=== PATIENT | female | born 1970 | race Caucasian/White ===

== ENCOUNTER 2016-11-19 08:01 | Day surgery (SDC) | payer BC ==
[~2016-11-19] VITALS: Ht 162.6 cm; Wt 61.7 kg
[~2016-11-19 08:01] MED LIST: CEFAZOLIN SOD 1 GM in D5W 50 ML IV ONE
[2016-11-19 08:42] VITALS: O2SAT 97
[2016-11-19] MEDS ORDERED: SEVOFLURANE 15 MIN GAS INH ONE (08:46)
[2016-11-19] MEDS ORDERED: ROCURONIUM BROMIDE 10 MG/ML (ZEMURON) IV ONE (08:46)
[2016-11-19] MEDS ORDERED: MIDAZOLAM HCL 5 MG/5 ML VIAL IVP ONE (08:46)
[2016-11-19] MEDS ORDERED: LR 1,000 ML IV.SOLN IV ONE (08:46)
[2016-11-19] MEDS ORDERED: GLYCOPYRROLATE 0.2 MG/ML VIAL IJ ONE (08:46)
[2016-11-19] MEDS ORDERED: DEXAMETHASONE SOD PHOSPHATE 4 MG/ML VIAL IVP ONE (08:46)
[2016-11-19] MEDS ORDERED: PROPOFOL 200MG/ 20ML VIAL (DIPRIVAN) IV ONE (08:46)
[2016-11-19] MEDS ORDERED: NS IRRIG SOLN 1000 ML IR ONE (08:46)
[2016-11-19] MEDS ORDERED: NS 1000 ML BAG IV ONE (08:46)
[2016-11-19] MEDS ORDERED: fentaNYL CITRATE 250 MCG/5 ML AMP IV ONE (08:46)
[2016-11-19] MEDS ORDERED: LR 1,000 ML IV ONE (10:44)
[2016-11-19] MEDS ORDERED: fentaNYL CITRATE/PF 100 MCG/2 ML AMP IVP PRN (10:45)
[2016-11-19] MEDS ORDERED: NALOXONE HCL 0.4 MG/ML AMP (NARCAN) IVP PRN (10:45)
[2016-11-19] MEDS ORDERED: ePHEDrine sulfate 50 MG/ML VIAL IVP PRN (10:45)
[2016-11-19] MEDS ORDERED: DIPHENHYDRAMINE INJ 50 MG/ML VIAL IVP PRN (10:45)
[2016-11-19] MEDS ORDERED: ONDANSETRON HCL 4 MG/2 ML VIAL IVP PRN ×3 (10:45→12:30)
[2016-11-19] MEDS ORDERED: NALBUPHINE HCL 10 MG/ML AMP IVP PRN (10:45)
[2016-11-19] MEDS ORDERED: MEPERIDINE HCL/PF 50 MG/ML AMP IVP PRN (12:30)
[2016-11-19] MEDS ORDERED: OXYCODONE/ACETAMINOPHEN 5-325 TABLET PO PRN ×2 (12:30)
[2016-11-19] MEDS ORDERED: HYDROcodone/ACETAMIN 5-325 MG TAB (NORCO/ VICODIN) PO PRN (12:30)
[2016-11-19] MEDS ORDERED: fentaNYL CITRATE/PF 100 MCG/2 ML AMP ONE (12:57)
[2016-11-19] MEDS ORDERED: ONDANSETRON HCL 4 MG/2 ML VIAL ONE (13:04)
[2016-11-19 13:39] VITALS: BP 119/64; PULSE 61; RESP 16
[2016-11-19] MEDS ORDERED: KETOROLAC TROMETHAMINE 30 MG VIAL IM ONE (14:00)
[2016-11-19] MEDS ORDERED: OXYCODONE/ACETAMINOPHEN 5-325 TABLET ONE (14:41)
[2016-11-19] MEDS ORDERED: KETOROLAC TROMETHAMINE 30 MG VIAL ONE (15:06)
== END 2016-11-19 16:50 | disposition home or self-care (01) ==
LOC: SDS 08:01 → SMU 08:02 → SDS 16:50
PROVIDERS: ATTEND Specialist
DX: N81.4 Uterovaginal prolapse, unspecified (principal); N39.3 Stress incontinence (female) (male); Z85.3 Personal history of malignant neoplasm of breast; N83.202 Unspecified ovarian cyst, left side; N94.10 Unspecified dyspareunia; N83.201 Unspecified ovarian cyst, right side; Z90.13 Acquired absence of bilateral breasts and nipples; I10 Essential (primary) hypertension; K21.9 Gastro-esophageal reflux disease without esophagitis; J45.909 Unspecified asthma, uncomplicated
CPT/HCPCS: 52000; 58552; 88307; C1727; J0690; J1100; J1885; J2250; J2405; J2704; J3010 ×2; J3490; J7030; J7060; J7120; E0190

== ENCOUNTER 2022-03-16 12:16 | Emergency (ER) | payer BC ==
[~2022-03-16] VITALS: Ht 162.6 cm; Wt 62.6 kg
[2022-03-16 13:53] VITALS: BP_SYST 119
--- NOTE | 2022-03-16 14:03 | NUR ---
PT PLACED IN BED 8. REPORT TO YASSINE KIM.
--- NOTE | 2022-03-16 14:20 | NUR ---
In ER bed 8. C/O Abdominal pain. Urine sent Awaiting
[2022-03-16 14:29] LABS: BILIRUBIN,URINE NEGATIVE (NEGATIVE); BLOOD, URINE NEGATIVE (NEGATIVE); CLARITY/URINE CLEAR (CLEAR); KETONES,URINE NEGATIVE (NEGATIVE); LEUKOCYTE ESTERASE ,URINE NEGATIVE (NEGATIVE); PH,URINE 7.5 (5.0-8.0); PROTEIN URINE NEGATIVE (NEGATIVE); UROBILINOGEN,URINE 0.2 (0.2-1.0)
[2022-03-16 14:40] LABS: BASOPHILS % (AUTO) 0.3 % (0.0-2.0); EOSINOPHILS # (AUTO) 0.2 K/uL (0.0-0.4); EOSINOPHILS % (AUTO) 1.4 % (0.0-4.0); HEMATOCRIT 41.3 % (36-48); HEMOGLOBIN 14.3 g/dL (12.0-16.0); LYMPHOCYTES # (AUTO) 2.8 K/uL (1.0-5.5); LYMPHOCYTES % (AUTO) 24.1 % (20.5-51.5); MEAN CORPUSCULAR HEMOGLOBIN 32 pg (27-31); MEAN CORPUSCULAR HGB CONC 35 % (32-36); MEAN CORPUSCULAR VOLUME 92 fL (79.0-98.0); MONOCYTES # (AUTO) 1.6 K/uL (0.0-1.0); MONOCYTES % (AUTO) 13.9 % (1.7-9.3); NEUTROPHILS # (AUTO) 6.9 K/uL (1.8-7.7); NEUTROPHILS % (AUTO) 60.3 % (40.0-70.0); PLATELET COUNT (AUTO) 285 K/uL (130-430); RED BLOOD CELL COUNT(AUTO) 4.48 MIL/uL (4.2-6.2); RED CELL DISTRIBUTION WIDTH 12.9 % (9.0-15.0); WHITE BLOOD COUNT (AUTO) 11.4 K/uL (4.8-10.8)
[2022-03-16 14:44] LABS: COLOR,URINE ORANGE (YELLOW); GLUCOSE,URINE NEGATIVE (NEGATIVE); NITRITE, URINE NEGATIVE (NEGATIVE)
[2022-03-16 14:45] LABS: CALCIUM 8.9 mg/dL (8.4-11.0); CREATININE 0.85 mg/dL (0.55-1.30); POTASSIUM 3.8 mmol/L (3.5-5.1)
[2022-03-16 14:51] LABS: ALBUMIN 3.5 g/dL (3.4-4.8); TOTAL BILIRUBIN 0.3 mg/dL (0.0-1.0)
[2022-03-16] MEDS ORDERED: ONDANSETRON HCL 4 MG/2 ML VIAL IVP ONE (16:15)
[2022-03-16] MEDS ORDERED: KETOROLAC TROMETHAMINE 15 MG VIAL IVP ONE (16:15)
[2022-03-16 16:20] LABS: HCG,QUAL RESULT NEGATIVE (NEGATIVE)
[2022-03-16] MEDS ORDERED: AMOXICILLIN/CLAVULANATE POTASSIUM 875 MG TABLET PO ONE (18:15)
[2022-03-16] MEDS ORDERED: AUG875 PO ×3 (18:16→18:17)
[2022-03-16] MEDS ORDERED: ONDA-8 TL ×3 (18:16→18:17)
[2022-03-16 18:54] VITALS: BP_SYST 110
== END 2022-03-16 18:54 | disposition home or self-care (01) ==
LOC: SED 12:16
DX: K57.92 Diverticulitis of intestine, part unspecified, without perforation or abscess without bleeding (principal); Z88.5 Allergy status to narcotic agent; Z79.899 Other long term (current) drug therapy
CPT/HCPCS: 36415; 74176; 76376; 80053; 81003; 81025; 84703; 85025; 96374; 96375; 99284; J1885; J2405